=== PATIENT | female | born 1955 | race American Indian/Alaskan Native ===

== ENCOUNTER 2017-11-22 13:51 | Outpatient (CLI) | payer MEDICARE ==
--- NOTE | 2017-11-22 15:49 | Cat Scan Report ---
CT ABDOMEN WITHOUT CONTRAST INDICATION: Other intra-abdominal mass. COMPARISON: 03/06/2014 CT. FINDINGS: Noncontrast abdomen CT performed following oral contrast only. LUNG BASES: Mild bibasilar scarring. Top normal heart size. Stable 1 cm right cardiophrenic angle lymph node. Mild nonspecific distal esophageal wall prominence/thickening, not excluded for gastroesophageal reflux and/or hiatal hernia, amongst others. ABDOMEN: Please note that sensitivity to detect small visceral lesions is limited due to the absence of intravenous contrast. Subtle diffuse fatty hepatic infiltration. Stable indeterminate 6 mm peripheral hepatic lobe hypodensity anteriorly, axial series 2, image 32. Multiple calcified gallstones again noted, the largest approximately 2.8 cm. Otherwise grossly unremarkable unenhanced liver, spleen, pancreas, adrenals, nonaneurysmal abdominal aorta, IVC and non-hydronephrotic kidneys. No ascites or size significant adenopathy. Nonopacified GI tract evaluation limited, though grossly nonobstructive. Normal appendix. Ascending colon stool. Descending colon now unremarkable. Stable fat-containing umbilical hernia with rectus diastasis/transverse neck of approximately 4 cm, axial image 107. Multilevel imaged spinal mild degenerative changes as spurring, disc degeneration as also lower lumbar facet arthropathy. Mild bilateral SI joint degenerative spurring with left more than right sclerosis also partially imaged. CONCLUSION: No acute CT abnormality on this limited, unenhanced exam with various findings including fatty liver, cholelithiasis and fat-containing umbilical hernia again noted with interval resolution of descending colitis since 2013, as described. Please correlate. Thank you for the opportunity to participate in this patient's care.
== END 2017-11-22 13:52 | disposition home or self-care (01) ==
LOC: CT 13:51
PROVIDERS: ATTEND Student in an Organized Health Care Education/Training Program
DX: K80.20 Calculus of gallbladder without cholecystitis without obstruction (principal); M47.896 Other spondylosis, lumbar region; I10 Essential (primary) hypertension; M12.88 Other specific arthropathies, not elsewhere classified, other specified site; Z90.710 Acquired absence of both cervix and uterus
CPT/HCPCS: 74150

== ENCOUNTER 2019-03-07 11:35 | Emergency (ER) | payer MEDICARE ==
--- NOTE | 2019-03-07 11:59 | Event Note ---
ED Screening Note Date of service: 03/07/19 Time: 11:55 ED Screening Note: 64 y/o female c/o left leg pain times 2 weeks. Hx/o rheumatoid arthritics , asthma. htn. Last fall a few days ago. This initial assessment/diagnostic orders/clinical plan/treatment(s) is/are subject to change based on patients health status, clinical progression and re- assessment by fellow clinical providers in the ED. Further treatment and workup at subsequent clinical providers discretion. Patient/guardian urged not to elope from the ED as their condition may be serious if not clinically assessed and managed. Initial orders include:
--- NOTE | 2019-03-07 12:50 | XRay Report ---
HIPS BILATERAL 2 VIEWS WITH PELVIS LEFT FEMUR, 2 VIEWS INDICATION: fall left leg pain and numbness. Left hip pain. COMPARISON: None. IMPRESSION: Normal bone mineralization. The pelvis is intact. No bony lesion, fracture or diastasis . There is anatomic alignment at both hips. No evidence for degenerative change, fracture or osteonec rosis. The left femur is intact. There are moderate osteoarthritic changes at the left knee. The soft tissues are unremarkable. Signer Name: Pedro Vicente Jr, MD Signed: 03/07/2019 12:46 PM Workstation Name: [id number]
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
[2019-03-07 13:45] LABS: Hematocrit 31.5 % (30.3-42.9); Hemoglobin 10.2 gm/dl (10.1-14.3); Mean Corpuscular HGB Conc 33 % (30-34); Mean Corpuscular Volume 86 fl (79-97); Platelet Count 183 K/mm3 (140-440); Red Blood Count 3.65 M/mm3 (3.65-5.03)
[2019-03-07 14:00] LABS: Alanine Aminotransferase 10 units/L (7-56); BUN/Creatinine Ratio 12; Bilirubin,Direct < 0.2 mg/dL (0-0.2); Blood Urea Nitrogen 11 mg/dL (7-17); Calcium 8.6 mg/dL (8.4-10.2); Hemolysis Index 4
[2019-03-07 14:58] LABS: Anisocytosis 1+; Band Neutrophils # (Manual) 0.1 K/mm3; Basophils % (Manual) 0 % (0.0-1.8); Hypochromasia 1+; Total Cells Counted 100
[2019-03-07 14:59] LABS: Platelet Estimate Consistent w Auto
[2019-03-07 16:25] VITALS: BP 194/90
== END 2019-03-07 17:04 | disposition home or self-care (01) ==
LOC: ED 11:35
DX: D70.9 Neutropenia, unspecified (principal); R19.7 Diarrhea, unspecified; I10 Essential (primary) hypertension; M06.9 Rheumatoid arthritis, unspecified; J45.909 Unspecified asthma, uncomplicated; Z79.899 Other long term (current) drug therapy; Z88.5 Allergy status to narcotic agent
CPT/HCPCS: 36415; 73521; 80048; 80076; 83735; 85007; 85025; 99283

== ENCOUNTER 2019-04-21 18:09 | Emergency (ER) | payer MEDICARE ==
--- NOTE | 2019-04-21 18:44 | Event Note ---
ED Screening Note ED Screening Note: states that she feels like there is "rubberbands" around her toes that began yesterday states she is having pain states she has not seen her PCP about this it appears she had similar symptoms in the right foot in the past PMHx RA, HTN, asthma, neutropenia This initial assessment/diagnostic orders/clinical plan/treatment(s) is/are subject to change based on patients health status, clinical progression and re- assessment by fellow clinical providers in the ED. Further treatment and workup at subsequent clinical providers discretion. Patient/guardian urged not to elope from the ED as their condition may be serious if not clinically assessed and managed. Initial orders include: labs
[2019-04-21 19:49] LABS: Hematocrit 31.8 % (30.3-42.9); Hemoglobin 10.4 gm/dl (10.1-14.3); Mean Corpuscular HGB Conc 33 % (30-34); Mean Corpuscular Volume 86 fl (79-97); Platelet Count 187 K/mm3 (140-440); Red Blood Count 3.72 M/mm3 (3.65-5.03); Red Cell Distribution Width 16.3 % (13.2-15.2)
[2019-04-21 20:05] LABS: BUN/Creatinine Ratio 15; Blood Urea Nitrogen 16 mg/dL (7-17); Calcium 9.2 mg/dL (8.4-10.2); Hemolysis Index 8
[2019-04-21] MEDS ORDERED: HYDROcodone/ACETAMINOPHEN 5-325 MG TAB PO ONE (20:37)
--- NOTE | 2019-04-21 20:43 | Emergency Department Report ---
ED Lower Extremity HPI - General Chief Complaint: Extremity Injury, Lower Stated Complaint: LT AND RT FOOT NUMBNESS IN TOES Time Seen by Provider: 04/21/19 18:42 Source: patient Mode of arrival: Ambulatory Limitations: No Limitations - History of Present Illness Initial Comments: pt is a 64 y/o aaf with hx of rheumatoid arthritis, asthma, neutropenia, and htn, who presents for bilat pinky toe pain described as tinging burning tingling. pt denies fall injury or trauma. There is no swelling or deformity, pt remains ambulatory to baseline per patient. MD Complaint: other (chronic foot and toe pain ) Onset/Timin (recurring for past 5-6 yrs ) -: week(s) Injury: Toes: Right, Left (5th digits ) Type of Injury: unknown Place: home Severity: moderate Severity scale (0 -10): 4 Improves With: nothing Worsens With: weight bearing, movement, palpation Associated Symptoms: tingling, ambulatory. denies: snap/pop sensation, swelling, numbness - Related Data Home Medications Medication Instructions Recorded Confirmed Last Taken Diclofenac Dr [Voltaren] 75 mg PO BID 04/12/13 03/05/14 Unknown Lisinopril/Hydrochlorothiazide 1 tab PO QDAY 04/12/13 03/05/14 04/12/13 [Zestoretic 20-12.5 mg] amLODIPine [Norvasc] 5 mg PO DAILY 04/12/13 03/05/14 04/12/13 Cyclobenzaprine HCl [Flexeril 5mg] 5 mg PO QHS 03/05/14 03/05/14 Unknown Ferrous Sulfate [Feosol] 325 mg PO BID 03/05/14 03/05/14 Unknown Ondansetron [Zofran] 4 mg PO Q12HR PRN 03/05/14 03/05/14 Unknown Previous Rx's Medication Instructions Recorded Last Taken Type Famotidine [Pepcid] 20 mg PO BID #60 tablet 03/06/14 Unknown Rx HYDROcodone/APAP 10-325 [[place] 1 each PO Q6HR PRN #30 tablet 03/06/14 Unknown Rx 10/325] Hyoscyamine Subl [Levsin Sl] 0.125 mg SL Q8HR PRN #20 tablet 03/06/14 Unknown Rx Moxifloxacin HCl [Avelox] 400 mg PO QDAY #7 tablet 03/06/14 Unknown Rx Ondansetron [Zofran Odt] 8 mg PO TID PRN #20 tab.rapdis 03/06/14 Unknown Rx traMADoL [Ultram] 50 mg PO Q6HR PRN #12 tablet 04/21/19 Unknown Rx Allergies Allergy/AdvReac Type Severity Reaction Status Date / Time naproxen [From Naprosyn] Allergy Dizziness Verified 04/12/13 10:22 methotrexate [Methotrexate] AdvReac Nausea Verified 04/12/13 10:22 oxaprozin [Oxaprozin] AdvReac Nausea Verified 04/12/13 10:25 prednisone AdvReac Swelling Verified 04/12/13 10:22 contrast Allergy Anaphylaxis Uncoded 04/12/13 10:22 ED Review of Systems ROS: Stated complaint: LT AND RT FOOT NUMBNESS IN TOES Other details as noted in HPI Constitutional: denies: chills, fever Eyes: denies: eye pain, eye discharge, vision change ENT: denies: ear pain, throat pain Respiratory: denies: cough, shortness of breath, wheezing Cardiovascular: denies: chest pain, palpitations Endocrine: no symptoms reported Gastrointestinal: denies: abdominal pain, nausea, diarrhea Genitourinary: denies: urgency, dysuria, discharge Musculoskeletal: arthralgia, myalgia. denies: back pain, joint swelling Skin: denies: rash, lesions Neurological: denies: headache, weakness, paresthesias Psychiatric: denies: anxiety, depression Hematological/Lymphatic: denies: easy bleeding, easy bruising ED Past Medical Hx - Past Medical History Hx Hypertension: Yes Hx Arthritis: Yes (RA) Hx Asthma: Yes Additional medical history: "I have floaters and flashing in both eyes x1.5 yrs; eye dr says there's nothing they can do about it", CHRONIC PAIN - Surgical History Additional Surgical History: hyst - Social History Smoking Status: Never Smoker Substance Use Type: Prescribed - Medications Home Medications: Home Medications Medication Instructions Recorded Confirmed Last Taken Type Diclofenac Dr [Voltaren] 75 mg PO BID 04/12/13 03/05/14 Unknown History Lisinopril/Hydrochlorothiazide 1 tab PO QDAY 04/12/13 03/05/14 04/12/13 History [Zestoretic 20-12.5 mg] amLODIPine [Norvasc] 5 mg PO DAILY 04/12/13 03/05/14 04/12/13 History Cyclobenzaprine HCl [Flexeril 5mg] 5 mg PO QHS 03/05/14 03/05/14 Unknown History Ferrous Sulfate [Feosol] 325 mg PO BID 03/05/14 03/05/14 Unknown History Ondansetron [Zofran] 4 mg PO Q12HR PRN 03/05/14 03/05/14 Unknown History Famotidine [Pepcid] 20 mg PO BID #60 tablet 03/06/14 Unknown Rx HYDROcodone/APAP 10-325 [[place] 1 each PO Q6HR PRN #30 tablet 03/06/14 Unknown Rx 10/325] Hyoscyamine Subl [Levsin Sl] 0.125 mg SL Q8HR PRN #20 tablet 03/06/14 Unknown Rx Moxifloxacin HCl [Avelox] 400 mg PO QDAY #7 tablet 03/06/14 Unknown Rx Ondansetron [Zofran Odt] 8 mg PO TID PRN #20 tab.rapdis 03/06/14 Unknown Rx traMADoL [Ultram] 50 mg PO Q6HR PRN #12 tablet 04/21/19 Unknown Rx ED Physical Exam - General Limitations: No Limitations General appearance: alert, in no apparent distress - Head Head exam: Present: atraumatic, normocephalic - Eye Eye exam: Present: normal appearance, PERRL, EOMI Pupils: Present: normal accommodation - ENT ENT exam: Present: mucous membranes moist - Neck Neck exam: Present: normal inspection - Respiratory Respiratory exam: Present: normal lung sounds bilaterally. Absent: respiratory distress - Cardiovascular Cardiovascular Exam: Present: regular rate, normal rhythm, normal heart sounds. Absent: systolic murmur, diastolic murmur, rubs, gallop - GI/Abdominal GI/Abdominal exam: Present: soft, normal bowel sounds - Rectal Rectal exam: Present: deferred - Extremities Exam Extremities exam: Present: full ROM, tenderness (bilat 5 digits no swelling no deformity, no ecchymosis distal pulses intact no edema mild bunion right pinky toe), normal capillary refill. Absent: pedal edema, joint swelling, calf tende rness - Back Exam Back exam: Present: normal inspection - Neurological Exam Neurological exam: Present: alert, oriented X3, CN II-XII intact, normal gait, reflexes normal. Absent: motor sensory deficit - Psychiatric Psychiatric exam: Present: normal affect, normal mood - Skin Skin exam: Present: warm, dry, intact, normal color. Absent: rash ED Course Vital Signs 04/21/19 18:16 Temperature 97.6 F Pulse Rate 81 Respiratory 18 Rate Blood Pressure 168/51 O2 Sat by Pulse 99 Oximetry ED Lower Extremity MDM - Lab Data Result diagrams: 04/21/19 19:30 04/21/19 19:30 - Medical Decision Making Patient declines x-rays, this is likely arthritis ,plan: nsaids, follow PCP , return immediately should symptoms worsen ,patient is currently alert and oriented 3 ambuialtory with steady gait there is no fevers, no chills no diabeticulcers. Critical care attestation.: If time is entered above; I have spent that time in minutes in the direct care of this critically ill patient, excluding procedure time. ED Disposition Clinical Impression: Foot pain, bilateral Arthralgia Qualifiers: Joint pain location: foot Laterality: bilateral Qualified Code(s): M25.571 - Pain in right ankle and joints of right foot; M25.572 - Pain in left ankle and joints of left foot Disposition: DC-01 TO HOME OR SELFCARE Is pt being admited?: No Does the pt Need Aspirin: No Condition: Stable Instructions: Arthralgia (ED) Prescriptions: traMADoL [Ultram] 50 mg PO Q6HR PRN #12 tablet PRN Reason: Pain Referrals: NELLA THIBODEAUX MD [Staff Physician] - 3-5 Days Forms: Work/School Release Form(ED) Time of Disposition: 21:43
[2019-04-21 20:48] LABS: Basophils % (Manual) 0 % (0.0-1.8); Total Cells Counted 100
[2019-04-21 20:49] LABS: Anisocytosis 1+; Large Platelets 1+; Ovalocytes 1+; Platelet Estimate Consistent w Auto
--- NOTE | 2019-04-21 22:06 | XRay Report ---
BILATERAL FOOT 2 VIEW(S) INDICATION / CLINICAL INFORMATION: bilat foot pain COMPARISON: None available. FINDINGS: RIGHT foot: No acute skeletal or soft tissue abnormality. Mild midfoot osteoarthrosis. A moderate wallace ntar calcaneal enthesophyte. Moderate joint space narrowing and osteophytes from osteoarthrosis at th e great toe metatarsophalangeal joint. Old, healed fracture deformity at the fifth metacarpal neck. T ype II accessory navicular. LEFT foot: No acute skeletal or soft tissue abnormality. A small plantar calcaneal enthesophyte is no gabbie. Moderate changes of osteoarthrosis of the great toe metatarsophalangeal joint, similar to those of the right foot. Signer Name: Jordan Roland MD Signed: 04/21/2019 10:01 PM Workstation Name: [id number]
[2019-04-21 22:14] VITALS: BP 189/73
== END 2019-04-21 22:10 | disposition home or self-care (01) ==
LOC: ED 18:09
DX: M25.571 Pain in right ankle and joints of right foot (principal); M25.572 Pain in left ankle and joints of left foot; I10 Essential (primary) hypertension; J45.909 Unspecified asthma, uncomplicated; M19.90 Unspecified osteoarthritis, unspecified site; G89.29 Other chronic pain; Z90.710 Acquired absence of both cervix and uterus; Z79.899 Other long term (current) drug therapy; Z88.8 Allergy status to other drugs, medicaments and biological substances; Z91.041 Radiographic dye allergy status
CPT/HCPCS: 36415; 80048; 85007; 85025

== ENCOUNTER 2019-04-22 13:16 | Emergency (ER) | payer MEDICARE ==
--- NOTE | 2019-04-22 13:56 | Event Note ---
ED Screening Note ED Screening Note: pt states that she fell in the parking lot at [facility] states she is having right sided pain she says "whole right side" but pinpoints no specific area of pain will have pt evaluated fully in [facility] prior to ordering any imaging testing This initial assessment/diagnostic orders/clinical plan/treatment(s) is/are subject to change based on patients health status, clinical progression and re- assessment by fellow clinical providers in the ED. Further treatment and workup at subsequent clinical providers discretion. Patient/guardian urged not to elope from the ED as their condition may be serious if not clinically assessed and managed.
--- NOTE | 2019-04-22 15:39 | Emergency Department Report ---
ED Fall HPI - General Chief Complaint: Fall Stated Complaint: R SIDE PAIN/FALL Time Seen by Provider: 04/22/19 15:26 Source: patient, EMS Mode of arrival: Ambulatory - History of Present Illness Initial Comments: Patient is 64 years old female with history of arthritis. Patient presented to the ER for evaluation after a fall at [facility]. Patient stated that she tripped and fell. Patient stated that she hit her head. Patient is complaining off right hip pain. Patient denied any other injuries. MD Complaint: fall -: This morning Fall From: standing Fall Witnessed: no Place Fall Occurred: street Loss of Consciousness: none Prolonged Down Time?: no Symptoms Prior to Fall: none Location: head, pelvis Severity: moderate Context: tripped/slipped Associated Symptoms: denies - Related Data Home Medications Medication Instructions Recorded Confirmed Last Taken Diclofenac Dr [Voltaren] 75 mg PO BID 04/12/13 03/05/14 Unknown Lisinopril/Hydrochlorothiazide 1 tab PO QDAY 04/12/13 03/05/14 04/12/13 [Zestoretic 20-12.5 mg] amLODIPine [Norvasc] 5 mg PO DAILY 04/12/13 03/05/14 04/12/13 Cyclobenzaprine HCl [Flexeril 5mg] 5 mg PO QHS 03/05/14 03/05/14 Unknown Ferrous Sulfate [Feosol] 325 mg PO BID 03/05/14 03/05/14 Unknown Ondansetron [Zofran] 4 mg PO Q12HR PRN 03/05/14 03/05/14 Unknown Previous Rx's Medication Instructions Recorded Last Taken Type Famotidine [Pepcid] 20 mg PO BID #60 tablet 03/06/14 Unknown Rx HYDROcodone/APAP 10-325 [Colonia 1 each PO Q6HR PRN #30 tablet 03/06/14 Unknown Rx 10/325] Hyoscyamine Subl [Levsin Sl] 0.125 mg SL Q8HR PRN #20 tablet 03/06/14 Unknown Rx Moxifloxacin HCl [Avelox] 400 mg PO QDAY #7 tablet 03/06/14 Unknown Rx Ondansetron [Zofran Odt] 8 mg PO TID PRN #20 tab.rapdis 03/06/14 Unknown Rx traMADoL [Ultram] 50 mg PO Q6HR PRN #12 tablet 04/21/19 Unknown Rx Allergies Allergy/AdvReac Type Severity Reaction Status Date / Time naproxen [From Naprosyn] Allergy Dizziness Verified 04/12/13 10:22 methotrexate [Methotrexate] AdvReac Nausea Verified 04/12/13 10:22 oxaprozin [Oxaprozin] AdvReac Nausea Verified 04/12/13 10:25 prednisone AdvReac Swelling Verified 04/12/13 10:22 contrast Allergy Anaphylaxis Uncoded 04/12/13 10:22 ED Review of Systems ROS: Stated complaint: R SIDE PAIN/FALL Other details as noted in HPI Comment: All other systems reviewed and negative Constitutional: denies: chills, fever Respiratory: denies: cough, shortness of breath Cardiovascular: denies: chest pain Gastrointestinal: denies: abdominal pain, nausea, vomiting Musculoskeletal: denies: back pain Neurological: denies: headache, weakness ED Past Medical Hx - Past Medical History Hx Hypertension: Yes Hx Arthritis: Yes (RA) Hx Asthma: Yes Additional medical history: "I have floaters and flashing in both eyes x1.5 yrs; eye dr says there's nothing they can do about it", CHRONIC PAIN - Surgical History Additional Surgical History: hyst - Social History Smoking Status: Never Smoker Substance Use Type: None - Medications Home Medications: Home Medications Medication Instructions Recorded Confirmed Last Taken Type Diclofenac Dr [Voltaren] 75 mg PO BID 04/12/13 03/05/14 Unknown History Lisinopril/Hydrochlorothiazide 1 tab PO QDAY 04/12/13 03/05/14 04/12/13 History [Zestoretic 20-12.5 mg] amLODIPine [Norvasc] 5 mg PO DAILY 04/12/13 03/05/14 04/12/13 History Cyclobenzaprine HCl [Flexeril 5mg] 5 mg PO QHS 03/05/14 03/05/14 Unknown History Ferrous Sulfate [Feosol] 325 mg PO BID 03/05/14 03/05/14 Unknown History Ondansetron [Zofran] 4 mg PO Q12HR PRN 03/05/14 03/05/14 Unknown History Famotidine [Pepcid] 20 mg PO BID #60 tablet 03/06/14 Unknown Rx HYDROcodone/APAP 10-325 [Colonia 1 each PO Q6HR PRN #30 tablet 03/06/14 Unknown Rx 10/325] Hyoscyamine Subl [Levsin Sl] 0.125 mg SL Q8HR PRN #20 tablet 03/06/14 Unknown Rx Moxifloxacin HCl [Avelox] 400 mg PO QDAY #7 tablet 03/06/14 Unknown Rx Ondansetron [Zofran Odt] 8 mg PO TID PRN #20 tab.rapdis 03/06/14 Unknown Rx traMADoL [Ultram] 50 mg PO Q6HR PRN #12 tablet 04/21/19 Unknown Rx ED Physical Exam - General Limitations: No Limitations General appearance: alert, in no apparent distress - Head Head exam: Present: atraumatic, normocephalic, normal inspection - Eye Eye exam: Present: normal appearance - ENT ENT exam: Present: normal exam, normal orophraynx, mucous membranes moist - Neck Neck exam: Present: normal inspection. Absent: tenderness, meningismus - Respiratory Respiratory exam: Present: normal lung sounds bilaterally - Cardiovascular Cardiovascular Exam: Present: regular rate, normal rhythm, normal heart sounds - GI/Abdominal GI/Abdominal exam: Present: soft, normal bowel sounds. Absent: distended, tend erness, guarding, rebound, rigid, organomegaly, mass, bruit, pulsatile mass, hernia - Extremities Exam Extremities exam: Present: normal inspection, full ROM, normal capillary refill. Absent: pedal edema, calf tenderness - Back Exam Back exam: Present: normal inspection, full ROM. Absent: CVA tenderness (R), CVA tenderness (L), muscle spasm, paraspinal tenderness, vertebral tenderness - Neurological Exam Neurological exam: Present: alert, oriented X3, CN II-XII intact - Psychiatric Psychiatric exam: Present: normal mood - Skin Skin exam: Present: warm, intact, normal color ED Course Vital Signs 04/22/19 04/22/19 04/22/19 13:51 14:34 16:35 Temperature 97.5 F L 97.8 F Pulse Rate 99 H 81 Respiratory 18 16 15 Rate Blood Pressure 183/90 Blood Pressure 174/88 [Left] O2 Sat by Pulse 100 Oximetry ED Medical Decision Making - Radiology Data Radiology results: report reviewed - Medical Decision Making Patient is 64 years old female with history of arthritis. Patient presented to the ER for evaluation after a fall at [facility]. Patient stated that she tripped and fell. Patient stated that she hit her head. Patient is complaining off right hip pain. Patient denied any other injuries. CT brain is negative for acute finding. Right hip x-ray is unremarkable. Patient had a prescription for, though from yesterday visit. Patient advised to continue her medication and to follow-up with her primary care physician in the next 2-3 days. Can also advised to return to the ER if symptoms are not improved. Critical care attestation.: If time is entered above; I have spent that time in minutes in the direct care of this critically ill patient, excluding procedure time. ED Disposition Clinical Impression: Arthralgia, Fall, Head injury Disposition: TO HOME OR SELFCARE Is pt being admited?: No Condition: Stable Instructions: Fall Prevention for Older Adults (ED), Minor Head Injury (ED), Contusion in Adults (ED) Additional Instructions: Please continue current medication of tramadol that prescribed yesterday. Referrals: PRIMARY CARE [Primary Care Provider] - 3-5 Days
--- NOTE | 2019-04-22 16:28 | XRay Report ---
RIGHT HIP 2 VIEWS INDICATION / CLINICAL INFORMATION: Right hip pain after fall. COMPARISON: Bilateral hip series from 03/07/2019. FINDINGS: BONES and JOINT(S): No acute fracture or subluxation. No significant arthritis. SOFT TISSUES: No significant abnormality. ADDITIONAL FINDINGS: None. IMPRESSION: No significant abnormality of the right hip. Signer Name: Kushal Bates MD Signed: 04/22/2019 4:24 PM Workstation Name: [id number]
[2019-04-22 16:36] VITALS: BP 174/88
--- NOTE | 2019-04-22 17:04 | Cat Scan Report ---
CT HEAD WITHOUT CONTRAST INDICATION / CLINICAL INFORMATION: head injury. TECHNIQUE: All CT scans at this location are performed using CT dose reduction for ALARA by means of automated e xposure control. COMPARISON: Head CT 04/01/2014 FINDINGS: HEMORRHAGE: No evidence of intracranial hemorrhage or extra-axial fluid collection. EXTRA-AXIAL SPACES: Cortical sulci, sylvian fissures and basilar cisterns have an unremarkable appear ance. VENTRICULAR SYSTEM: The ventricular system is of normal size and configuration. CEREBRAL PARENCHYMA: Several regions of decreased brain parenchymal attenuation are observed in the w bello matter of both cerebral hemispheres. These are likely related to microvascular ischemic change. No additional areas of abnormal brain parenchymal attenuation are identified. There is no indication of recent infarction. MIDLINE SHIFT OR HERNIATION: There is no mass effect. CEREBELLUM / BRAINSTEM: Brainstem and cerebellum have an unremarkable appearance. INTRACRANIAL VESSELS:No abnormalities are identified on this noncontrast head CT. ORBITS: visualized portions of the orbits have an unremarkable appearance. SOFT TISSUES of HEAD: No significant abnormality. 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 This measur es about 9 mm in greatest dimension. A similar finding was present on previous study. PARANASAL SINUSES / MASTOID AIR CELLS: Paranasal sinuses are free from inflammatory mucosal disease. Mastoid air cells are normally pneumatized. ADDITIONAL FINDINGS: None. IMPRESSION: 1. Multifocal areas of decreased attenuation are seen in the white matter of both cerebral hemisphere s likely secondary to microvascular ischemic change. 2. Otherwise negative head CT without contrast. Signer Name: Joseph Shipman MD Signed: 04/22/2019 4:59 PM Workstation Name: [id number]
[2019-04-22] MEDS ORDERED: KETOROLAC 60 MG/2 ML INJ IM ONE (17:10)
[2019-04-22] MEDS ORDERED: KETOROLAC 60 MG/2 ML INJ ONE (17:13)
== END 2019-04-22 18:03 | disposition home or self-care (01) ==
LOC: ED 13:16
DX: S09.90XA Unspecified injury of head, initial encounter (principal); M25.551 Pain in right hip; I10 Essential (primary) hypertension; M19.90 Unspecified osteoarthritis, unspecified site; J45.909 Unspecified asthma, uncomplicated; Z90.710 Acquired absence of both cervix and uterus; Z79.899 Other long term (current) drug therapy; Z88.8 Allergy status to other drugs, medicaments and biological substances; Z91.041 Radiographic dye allergy status; W01.0XXA Fall on same level from slipping, tripping and stumbling without subsequent striking against object, initial encounter; Y93.89 Activity, other specified; Y92.512 Supermarket, store or market as the place of occurrence of the external cause; Y99.8 Other external cause status
CPT/HCPCS: 70450; 73502; 96372; 99284; J1885